=== PATIENT | male | born 1985 ===

== ENCOUNTER 2023-01-06 14:57 | Outpatient (CLI) | payer OTHER | END 2023-01-06 14:58 | disposition home or self-care (01) | LOC: BICMRI 14:57 | PROVIDERS: ATTEND Family Medicine | DX: S46.211A Strain of muscle, fascia and tendon of other parts of biceps, right arm, initial encounter (principal) ==

== ENCOUNTER 2023-01-22 08:39 | Outpatient (CLI) | payer SELFPAY ==
[2023-01-22 09:15] LABS: #Basophils 0.1 10x3/uL (0.0-0.2); #Eosinphils 0.2 10x3/uL (0.0-0.5); #Monocytes 0.5 10x3/uL (0.0-1.1); #Neutrophils 3.3 10x3/uL (1.5-8.4); %Basophils 0.8 % (0.0-2.0); %Eosinophils 2.4 % (0.0-6.0); %Lymphocytes 44.8 % (18.0-47.0); %Monocytes 6.5 % (0.0-10.0); %Neutrophils 45.4 % (40.0-75.0); Hematocrit 41.9 % (38.8-50.0); Hemoglobin 14.6 g/dL (13.5-17.5); Mean Corpuscular HGB CONC 34.8 g/dL (32.0-36.0); Mean Platelet Volume 9.8 fl (7.4-10.4); Platelet Count 316 10x3/uL (150-450); RBC Distribution Width 12.1 % (11.5-14.5); Red Blood Cell (RBC) Count 4.71 10x6/uL (4.32-5.72); White Blood Cell (WBC) Count 7.2 10x3/uL (3.5-10.5)
[2023-01-22 09:42] LABS: Anion Gap 15 mmol/L (10-20); BUN (Urea Nitrogen) 11 mg/dL (8.9-20.6); Calc. Creatinine Clearance 0 mL/min (70-130); Calcium 9.6 mg/dL (7.8-10.44); Carbon Dioxide 24 mmol/L (22-29); Chloride 105 mmol/L (98-107); Estimated GFR 113; Glucose 104 mg/dL (70-105); Potassium 3.9 mmol/L (3.5-5.1); Sodium 140 mmol/L (136-145)
== END 2023-01-22 08:40 | disposition home or self-care (01) ==
LOC: LABBT 08:39
PROVIDERS: ATTEND Orthopaedic Surgery
DX: Z01.812 Encounter for preprocedural laboratory examination (principal); S46.211A Strain of muscle, fascia and tendon of other parts of biceps, right arm, initial encounter
CPT/HCPCS: 80048; 85025

== ENCOUNTER 2023-01-23 06:19 | Day surgery (SDC) | payer OTHER ==
[2023-01-22 11:03] VITALS: BMI 31.6
[2023-01-23] MEDS ORDERED: Acetaminophen 500 MG TAB ONE (08:14)
[2023-01-23] MEDS ORDERED: Ondansetron PF 4 MG/2 ML Vial ONE ×2 (08:16→08:46)
[2023-01-23] MEDS ORDERED: Glycopyrrolate 0.2 MG/ML 5 ML SYRINGE ONE ×2 (08:16→08:46)
[2023-01-23] MEDS ORDERED: Dexamethasone 4 mg/ml Vial ONE (08:17)
[2023-01-23] MEDS ORDERED: PROPOFOL 20 ML ONE (08:24)
[2023-01-23] MEDS ORDERED: Sodium Chloride 0.9% 100 ML ONE (08:27)
[2023-01-23] MEDS ORDERED: CEFAZOLIN 2 GM VIAL ONE (08:27)
[2023-01-23] MEDS ORDERED: Dexmedetomidine 200 MCG/2 ML VIAL ONE (08:29)
[2023-01-23] MEDS ORDERED: Ketorolac Tromethamine 30 MG/ML VIAL ONE (08:46)
[2023-01-23] MEDS ORDERED: PROPOFOL 200 MG/20 ML VIAL ONE (08:46)
[2023-01-23] MEDS ORDERED: Dexamethasone 20 MG/5 ML VIAL ONE (08:46)
[2023-01-23] MEDS ORDERED: HYDROmorphone 2 MG/ML VIAL ONE (08:55)
[2023-01-23] MEDS ORDERED: Bupivacaine 0.25% HCL 30 ML VIAL ONE (09:01)
[2023-01-23] MEDS ORDERED: EPINEPHrine 1 MG/ML VIAL ONE (09:01)
[2023-01-23] MEDS ORDERED: fentaNYL 50 mcg/mL 1 mL Vial ONE (10:23)
== END 2023-01-23 12:00 | disposition home or self-care (01) ==
LOC: SDC 06:19
PROVIDERS: ATTEND Orthopaedic Surgery
PROC: 0LS10ZZ Reposition Right Shoulder Tendon, Open Approach (ICD-10-PCS; principal; 2023-01-23)
DX: S46.211A Strain of muscle, fascia and tendon of other parts of biceps, right arm, initial encounter (principal); X50.9XXA Other and unspecified overexertion or strenuous movements or postures, initial encounter
CPT/HCPCS: C1713; J0171; J1100; J1170; J1885; J2405; J2704; J3010; J3490; S0020